=== PATIENT | female | born 1985 | race American Indian/Alaskan Native ===

== ENCOUNTER 2023-11-29 05:53 | Day surgery (SDC) | payer MEDICAID ==
[2023-11-29] MEDS ORDERED: Dextrose 5%-0.45% NaCl 1,000 ML IV SCH (06:00)
[2023-11-29] MEDS ORDERED: Midazolam 1 MG/ML 2 ML SDV ONE (06:13)
[2023-11-29] MEDS ORDERED: fentaNYL 100 MCG/2 ML SDV IV ONE ×3 (06:13→07:02)
[2023-11-29] MEDS ORDERED: fentaNYL 100 MCG/2 ML SDV ONE (06:13)
[2023-11-29] MEDS ORDERED: Midazolam 1 MG/ML 2 ML SDV IV ONE ×3 (06:13→07:03)
== END 2023-11-29 09:10 | disposition home or self-care (01) ==
LOC: DL.ENDO 05:53
PROVIDERS: ATTEND Internal Medicine Gastroenterology
DX: K44.9 Diaphragmatic hernia without obstruction or gangrene (principal); B96.81 Helicobacter pylori [H. pylori] as the cause of diseases classified elsewhere; E66.09 Other obesity due to excess calories; Z68.41 Body mass index [BMI] 40.0-44.9, adult; Z88.0 Allergy status to penicillin
CPT/HCPCS: 87077; J2250; J3010; J7042

== ENCOUNTER 2024-05-16 23:28 | Emergency (ER) | payer MEDICAID ==
[2024-05-17 00:27] LABS: PROTHROMBIN TIME 9.9 SEC (9.0-12.0)
== END 2024-05-17 01:11 | disposition home or self-care (01) ==
LOC: DL.ED 23:28
DX: S80.02XA Contusion of left knee, initial encounter (principal); E66.9 Obesity, unspecified; Z79.899 Other long term (current) drug therapy; Z88.0 Allergy status to penicillin; Z68.41 Body mass index [BMI] 40.0-44.9, adult; X58.XXXA Exposure to other specified factors, initial encounter
CPT/HCPCS: 36415; 85379; 85610; 99283

== ENCOUNTER 2025-01-04 18:45 | Emergency (ER) | payer MEDICAID ==
[2025-01-04] MEDS: Take Home: Azithromycin 250 MG, 2 Tab Pack PO ONE (20:20)
[2025-01-04] MEDS: Azithromycin 250 MG Tab PO ONE (20:20)
== END 2025-01-04 20:26 | disposition home or self-care (01) ==
LOC: DL.ED 18:45
DX: U07.1 COVID-19 (principal); Z88.0 Allergy status to penicillin; Z79.899 Other long term (current) drug therapy
CPT/HCPCS: 87428; 87430; 99283; A9270; 99284

== ENCOUNTER 2025-02-27 14:45 | Emergency (ER) | payer MEDICAID | END 2025-02-27 15:21 | disposition home or self-care (01) | LOC: DL.ED 14:45 | DX: M99.18 Subluxation complex (vertebral) of rib cage (principal); E66.9 Obesity, unspecified; Z88.0 Allergy status to penicillin; Z79.899 Other long term (current) drug therapy; Z90.49 Acquired absence of other specified parts of digestive tract; Z68.41 Body mass index [BMI] 40.0-44.9, adult | CPT/HCPCS: 99284 ==